=== PATIENT | female | born 1985 ===

== ENCOUNTER 2018-12-17 14:16 | Emergency (ER) | payer MEDICAID ==
--- NOTE | 2018-12-17 15:14 | ED PDOC ---
HPI: Back Time Seen by Provider: 12/17/18 14:28 Chief Complaint (Nursing): Back Pain Chief Complaint (Provider): Back Pain History Per: Patient History/Exam Limitations: no limitations Onset/Duration Of Symptoms: Days (x3 months), Worse Since (x1 month) Current Symptoms Are (Timing): Still Present Additional Complaint(s): 33 year old female presents to the ED for evaluation of lower back pain onset three months ago, worsening last month when she began having shooting pains down the back of the right leg associated with intermittent right lower extremity weakness. Patient also reports now having numbness to the right foot. At onset of worsening symptoms, patient was seen at [facility] where she was given cotisone shot, an anti-inflammatory, and discharged with Naproxen to no improvement. One week after that, she went back to [place] where she received similar treatment but discharged with Flexeril, still to no avail. Finally, she reports going to [place] one week ago but once told she would receive similar treatment as the past two times, she walked out of ED. She notes a client of hers gave her a lidocaine patch, but that also did not help. Two days ago, patient states she went to a chiropractor and physical therapy, but could only do 20 minutes of PT and has had worsening pain since. She was then seen by Dr. Helton (pain specialist) yesterday who started her on a Medrol dose pack and Gabapentin, which provided transient relief last night and allowed her to get about five hours of sleep before symptoms returned. She was also given a script for outpatient lumbar spine MRI and advised to come to ED if pain worsened. Otherwise, denies fever, chills, fecal/ urinary incontinence, and trauma / injury / falls. PMD: none provided Past Medical History Reviewed: Historical Data, Nursing Documentation, Vital Signs Vital Signs: Last Vital Signs Temp 98.0 F 12/17/18 14:26 Pulse 124 H 12/17/18 14:26 Resp 20 12/17/18 14:26 BP 142/77 12/17/18 14:26 Pulse Ox 100 12/17/18 14:26 - Medical History PMH: No Chronic Diseases - Surgical History Surgical History: No Surg Hx - Family History Family History: States: Unknown Family Hx - Social History Current smoker - smoking cessation education provided: No Alcohol: Social Drugs: Denies - Home Medications Home Medications: Ambulatory Orders Medication Instructions Recorded Ibuprofen [Motrin Tab] 800 mg PO Q6 PRN 7 Days tab 12/17/18 oxyCODONE/Acetaminophen [Percocet 1 ea PO Q8 PRN #3 tab 12/17/18 5/325 mg Tab] - Allergies Allergies/Adverse Reactions: Allergies Allergy/AdvReac Type Severity Reaction Status Date / Time strawberry Allergy RASH Verified 12/17/18 14:25 Review of Systems ROS Statement: Except As Marked, All Systems Reviewed And Found Negative Constitutional: Negative for: Fever, Chills Genitourinary Female: Negative for: Incontinence (fecal/urinary) Musculoskeletal: Positive for: Back Pain (low with shooting pains down right lower extremity) Neurological: Positive for: Weakness (intermittent right lower extremity), Numbness (right foot) Physical Exam - Reviewed Nursing Documentation Reviewed: Yes Vital Signs Reviewed: Yes - Physical Exam Appears: Positive for: Uncomfortable Pulses-Dorsalis Pedis (L): 2+ Pulses-Dorsalis Pedis (R): 2+ Back: Positive for: Decreased ROM (with extension of back), Other (tenderness to palpation of lumbar spine and right buttock without any ecchymosis, edema, or erythema) Extremity: Positive for: Normal ROM (with flexion and extension of right knee and hip), Capillary Refill (less than 2 seconds) Neurological/Psych: Positive for: Awake, Alert, Oriented (x3), Motor/Sensory Deficits (decreased sensation to light touch on right upper leg and foot) - ECG O2 Sat by Pulse Oximetry: 100 (RA) Pulse Ox Interpretation: Normal Medical Decision Making Medical Decision Making: Time: 1438 Initial Impression: back pain, possible herniated disc, possible sciatica Initial Plan: --U-preg --Lumbar spine MRI without contrast --Flexeril 10mg PO --Toradol 30mg IM --Reevaluation 1530 Patient in MRI. 1540 Patient in MRI unable to lay straight on her back secondary to pain levels. Morphine 4mg IM and Zofran 4mg PO ordered. 17:19 Patient reevaluated: no improvement at all in pain. Dr. Helton of pain management consulted. Recommends 1 mg of IM duilaudid and complete scan. [facility] aware website queried. Patient filled prescription for Tramadol, 10 pills, on 12/07/2018. MRI: Impression: Degenerative changes with large right paracentral disc herniation at the L4-L5 level indenting the anterior right-sided thecal sac and causing narrowing of the right neural foramen. Small broad-based posterior disc herniation at the L5-S1 level. 21:30 Neurosurgery consulted. 21:[address] Urrutia neurosurgery who states that as long as she can ambulate she can be discharged and given outpatient followup. Patient ambulating with steady gait and feels significant improvement in pain. She is stable for discharge home and advised to follow up tomorrow with Dr. Helton and will be given 3 pills of percocet for severe pain until she can see neurosurgeon or pain specialist. Scribe Attestation: Documented by Darlyn Hammonds, acting as a scribe for Massiel Marcial PA-C. Provider Scribe Attestation: All medical record entries made by the Scribe were at my direction and personally dictated by me. I have reviewed the chart and agree that the record accurately reflects my personal performance of the history, physical exam, medical decision making, and the department course for this patient. I have also personally directed, reviewed, and agree with the discharge instructions and disposition. Disposition - Clinical Impression Clinical Impression: Sciatica due to displacement of lumbar intervertebral disc - Patient ED Disposition Is Patient to be Admitted: No - Disposition Referrals: Nehemias Urrutia MD [Staff Provider] - Clemente Helton MD [Staff Provider] - Disposition: Routine/Home Disposition Time: 21:45 Condition: IMPROVED Additional Instructions: Follow up with Dr. Helton tomorrow and make appointment to see neurosurgeon (Dr. Urrutia) JUDITH as you may need surgical correction for improvement in pain. Take Ibuprofen or Tylenol in addition to Gabapentin and Medrol dose pack. Take Percocet for severe pain not managed by other medications. Return to ER if you have trouble walking due to numbness or weakness. Prescriptions: Ibuprofen [Motrin Tab] 800 mg PO Q6 PRN 7 Days tab PRN Reason: Pain, Moderate (4-7) oxyCODONE/Acetaminophen [Percocet 5/325 mg Tab] 1 ea PO Q8 PRN #3 tab PRN Reason: Pain, Severe (8-10) Instructions: Radiculopathy (DC) Forms: [employer] (Congolese), [facility] ED School/Work Excuse Print Language: CHINESE
[2018-12-17] MEDS ORDERED: Morphine 4 MG/ML VIAL IM STA (15:57)
[2018-12-17] MEDS ORDERED: Morphine 4 MG/ML VIAL ONE (16:01)
[2018-12-17 16:37] VITALS: RESP 16
--- NOTE | 2018-12-17 20:41 | MRI ---
Date of service: 12/17/2018 PROCEDURE: MR LUMBAR SPINE WITHOUT CONTRAST HISTORY: back pain w/ LE weakness and numbness COMPARISON: None available. TECHNIQUE: Multiecho multiplanar sequences were performed through the lumbar spine without the use of intravenous contrast. FINDINGS: There is a straightening of the lumbar spine which could be due to muscle spasm. Vertebral body heights are preserved. Mild hyperintense T2 and hypointense T1 signal noted at the inferior endplate of L4 and superior endplate of L5 likely represent degenerative changes. Conus medullaris unremarkable at the level of T12 Paraspinal soft tissues are unremarkable. T12-L1: No disc herniation, spinal canal stenosis or neural foraminal narrowing. L1-2: No disc herniation, spinal canal stenosis or neural foraminal narrowing. L2-3: No evidence of disc herniation, significant spinal or neural foraminal narrowing. L3-4: There is a small broad-based bulge disc associated with mild posterior ligament and facet joint hypertrophy more prominent on the left side without evidence of significant spinal or neural foraminal narrowing. There is mild degenerative disc changes noted. L4-5: There is central and right paracentral large approximately 12.2 millimeter disc herniation associated with mild posterior ligament and facet joint hypertrophy which resulting in severe spinal and lateral recess narrowing right more than left. No evidence of significant neural foraminal stenosis. There is moderate narrowing of the intervertebral disc is space and [id number] disc degenerative changes noted. L5-S1: There is a small central and left paracentral bulging disc without evidence of significant spinal or neural foraminal narrowing. OTHER FINDINGS: None. IMPRESSION: Large central and right paracentral disc herniation at L4-L5 associated with severe spinal and lateral recess narrowing right more than left. Moderate narrowing of the intervertebral disc space and [id number] disc degenerative changes at L4-L5.
[2018-12-17 22:19] VITALS: BP 130/68; PULSE 92; TEMP 98.4
[2018-12-18 00:11] VITALS: O2SAT 100
== END 2018-12-17 22:19 | disposition home or self-care (01) ==
LOC: H.ER 14:16
DX: M51.27 Other intervertebral disc displacement, lumbosacral region (principal); M54.31 Sciatica, right side
CPT/HCPCS: 72148; 81025; 96372; 99282; J1170; J1885; J2270